=== PATIENT | male | born 1965 | race Caucasian/White ===

== ENCOUNTER 2018-12-06 03:10 | Emergency (ER) | payer OTHER ==
[2018-12-06] MEDS ORDERED: ASPIRIN 81 MG CHEWABLE TAB PO ONE (03:36)
[2018-12-06 03:37] LABS: PLATELET COUNT 211 10^3/uL (150-400)
--- NOTE | 2018-12-06 04:27 | EDPHY ---
H & P Stated Complaint: left chest wall crampimng, woke up wet with sweat Time Seen by Provider: 12/06/18 03:50 HPI/ROS: HPI The patient presents with chest pain which began at about 2:00 a.m.. The patient awoke in the night to go to the bathroom. He lie back in bed in several minutes after being in bed developed acute onset of left-sided chest pain which felt cramping and diffuse in nature. It became progressively worse and eventually traveled to his right axilla as well radiating down his arm and causing a stiff sensation. This was worse with deep breaths and caused him to feel short of breath. He did not have any associated nausea, vomiting, dizziness, diaphoresis. He has not had pain like this before. He does have a history of GERD for which he takes Prilosec. He reports increased stress at home and at work lately. He also says that over the last few days he has been doing some heavy lifting and exercise classes targeted to the upper body. He says that he has generally felt run down over the last few days.. REVIEW OF SYSTEMS 10 systems were reviewed and negative with the exception of the elements mentioned in the history of present illness. PMHx: History of sternal pain about 2 years ago which was evaluated with a cardiac stress test which was negative Soc Hx: Housed with his family, nonsmoker PHYSICAL General Appearance: Alert, no distress Eyes: Pupils equal and round no pallor or injection ENT, Mouth: Mucous membranes moist Respiratory: There are no retractions, lungs are clear to auscultation Cardiovascular: Regular rate and rhythm Gastrointestinal: Abdomen is soft and non-tender, no masses, bowel sounds normal Neurological: A&O, moves all extremities Skin: Warm and dry, no rashes Musculoskeletal: Neck is supple non tender Extremities: symmetrical, full range of motion Psychiatric: Patient is oriented X 3, there is no agitation Source: Patient Exam Limitations: No limitations - Personal History Current Tetanus/Diphtheria Vaccine: Yes Current Tetanus Diphtheria and Acellular Pertussis (TDAP): Yes - Medical/Surgical History Hx Asthma: No Hx Chronic Respiratory Disease: No Hx Diabetes: No Hx Cardiac Disease: No Hx Renal Disease: No Hx Cirrhosis: No Hx Alcoholism: No Hx HIV/AIDS: No Hx Splenectomy or Spleen Trauma: No Other PMH: denies - Social History Smoking Status: Never smoked Constitutional: Initial Vital Signs Temperature (C) 36.4 C 12/06/18 03:10 Heart Rate 58 L 12/06/18 03:10 Respiratory Rate 18 12/06/18 03:10 Blood Pressure 147/96 H 12/06/18 03:10 O2 Sat (%) 97 12/06/18 03:10 O2 Delivery Mode Room Air Allergies/Adverse Reactions: Penicillins Allergy (Verified 07/14/13 16:43) Home Medications: Medication Instructions Recorded Diploprovax 07/14/13 Medical Decision Making - Diagnostics EKG Interpretation: EKG: Complete interpretation has been separately recorded in the [facility] archive. Summary impression: Normal sinus rhythm Imaging Results: Chest x-ray did rates no cardiomegaly no infiltrate, no event, inter by me, radiology interpretation pending. Imaging: I viewed and interpreted images myself Differential Diagnosis: This is a 53-year-old man with no significant past medical history who presents from home with acute onset of left-sided chest pain which occurred after returning the after going to bed. It was associated with shortness of breath and radiated to his R side. His pain had improved significantly. He recently underwent cardiac stress testing about 2 years ago which was negative in the setting of sternal pain. Here, patient had EKG, chest x-ray, basic laboratories including troponin which were all unremarkable. Symptoms had improved significantly. Differential diagnoses considered include ACS, GERD, anxiety, muscle spasm. Ultimately, I suspect multiple spasm as the cause of his symptoms. As I have discussed this with him. He feels comfortable going home with follow up with his [place] physicians. - Data Points Laboratory Results: Laboratory Results 12/06/18 03:25 12/06/18 03:25 12/06/18 12/06/18 12/06/18 03:30 03:25 03:25 WBC 7.25 10^3/uL 10^3/uL (3.80-9.50) RBC 4.54 10^6/uL 10^6/uL (4.40-6.38) Hgb 14.5 g/dL g/dL (13.7-17.5) Hct 42.7 % % (40.0-51.0) MCV 94.1 fL fL (81.5-99.8) MCH 31.9 pg pg (27.9-34.1) MCHC 34.0 g/dL g/dL (32.4-36.7) RDW 12.0 % % (11.5-15.2) Plt Count 211 10^3/uL 10^3/uL (150-400) MPV 9.4 fL fL (8.7-11.7) Neut % (Auto) 37.7 % L % (39.3-74.2) Lymph % (Auto) 48.8 % H % (15.0-45.0) Ness % (Auto) 10.9 % % (4.5-13.0) Eos % (Auto) 1.7 % % (0.6-7.6) Baso % (Auto) 0.6 % % (0.3-1.7) Nucleat RBC Rel Count 0.0 % % (0.0-0.2) Absolute Neuts (auto) 2.74 10^3/uL 10^3/uL (1.70-6.50) Absolute Lymphs (auto) 3.54 10^3/uL H 10^3/uL (1.00-3.00) Absolute Monos (auto) 0.79 10^3/uL 10^3/uL (0.30-0.80) Absolute Eos (auto) 0.12 10^3/uL 10^3/uL (0.03-0.40) Absolute Basos (auto) 0.04 10^3/uL 10^3/uL (0.02-0.10) Absolute Nucleated RBC 0.00 10^3/uL 10^3/uL (0-0.01) Immature Gran % 0.3 % % (0.0-1.1) Immature Gran # 0.02 10^3/uL 10^3/uL (0.00-0.10) Sodium 139 mEq/L mEq/L (135-145) Potassium 4.2 mEq/L mEq/L (3.5-5.2) Chloride 104 mEq/L mEq/L (97-110) Carbon Dioxide 26 mEq/l mEq/l (22-31) Anion Gap 9 mEq/L mEq/L (6-14) BUN 19 mg/dL mg/dL (7-23) Creatinine 0.9 mg/dL mg/dL (0.7-1.3) Estimated GFR > 60 Glucose 94 mg/dL mg/dL (70-100) Calcium 9.8 mg/dL mg/dL (8.5-10.4) POC Troponin I 0.00 ng/mL ng/mL (0.00-0.08) Medications Given: Discontinued Medications Aspirin (Aspirin) 324 mg PO EDNOW ONE Stop: 12/06/18 03:37 Last Admin: 12/06/18 03:38 Dose: 324 mg Point of Care Test Results: Chemistry 12/06/18 03:30 POC Troponin I 0.00 ng/mL ng/mL (0.00-0.08) Departure - Departure Disposition: Home, Routine, Self-Care Clinical Impression: Chest pain Qualifiers: Chest pain type: unspecified Qualified Code(s): R07.9 - Chest pain, unspecified Condition: Good Instructions: Chest Pain (ED), Muscle Spasm (ED) Additional Instructions: Your testing today which included an EKG, chest x-ray, laboratory testing with a troponin blood test were all normal. I think your pain is related to muscle spasm of the chest wall. Because of this , I recommend you take ibuprofen or Tylenol as needed for any ongoing symptoms. Please follow-up with your primary care doctor in the next 1-2 days if your symptoms continue and return to the emergency department if your worse in any way. Referrals: JAI GARNETT [Other] - As per Instructions
[2018-12-06 04:45] VITALS: BP 122/80
--- NOTE | 2018-12-06 06:55 | CPEKG ---
Test Reason : OPEN Blood Pressure : / mmHG Vent. Rate : 055 BPM Atrial Rate : 055 BPM P-R Int : 196 ms QRS Dur : 086 ms QT Int : 424 ms P-R-T Axes : 051 025 032 degrees QTc Int : 406 ms Sinus rhythm Confirmed by Bibiana Hong ([id number]) on 12/06/2018 6:54:34 AM Referred By: PHYSICIAN ED Confirmed By:Bibiana Hong
== END 2018-12-06 04:44 | disposition home or self-care (01) ==
DX: R07.89 Other chest pain (principal)
CPT/HCPCS: 84484-ER